=== PATIENT | male | born 1965 | race Caucasian/White ===

== ENCOUNTER 2018-12-28 19:27 | Inpatient (IN) | payer MEDICAID ==
[~2018-12-28] VITALS: Ht 177.8 cm; Wt 121.0 kg
--- NOTE | 2018-12-28 19:27 | NUR ---
BIB via ambulance from [facility] ED. C/O left upper dental abscess. Here for I&D. C/O pain and swelling at site. Will continue to monitor.
[2018-12-28] MEDS ORDERED: MORPHINE SULFATE 4 MG/ML, 1ML ONE (19:54)
[2018-12-28] MEDS ORDERED: MORPHINE SULFATE 4 MG/ML, 1ML IVPush PRN (20:00)
[2018-12-28] MEDS ORDERED: PLEASE ENTER ALLERGIES MC SCH (20:00)
--- NOTE | 2018-12-28 20:00 | NUR ---
C/O pain/ Morphine admin. Placed on 2 L NC.
[2018-12-28 20:14] LABS: MEAN CORPUSCULAR HEMOGLOBIN 32.8 pg (27.5-34.5); MEAN CORPUSCULAR HGB CONC 33.4 g/dL (33.2-36.2); MEAN PLATELET VOLUME 8.4 fL (7.4-10.4); PLATELET COUNT 272 x10^3/uL (130-400); RED BLOOD COUNT 4.54 x10^6/uL (4.38-5.82); RED CELL DISTRIBUTION WIDTH 14.2 % (9.4-14.8)
[2018-12-28 20:24] LABS: ALBUMIN 3.7 g/dL (3.4-5.0); ANION GAP 6 mmol/L (5-15); CALCIUM 9.1 mg/dL (8.5-10.1); CHLORIDE 106 mmol/L (98-107)
[2018-12-28 20:27] LABS: ALANINE AMINOTRANSFERASE 29 U/L (12-78); ALKALINE PHOSPHATASE 83 U/L (45-117); BILIRUBIN,TOTAL 0.4 mg/dL (0.2-1.0); CREATININE 1.27 mg/dL (0.7-1.3); MD YES; TOTAL PROTEIN 7.5 g/dL (6.4-8.2)
[2018-12-28 20:30] LABS: <PLATELET ESTIMATE> ADEQUATE; <PLT MORPHOLOGY> NORMAL PLT MORPH; <RBC MORPHOLOGY> NORMAL; EOS#(MANUAL) 0.33 x10^3/uL (0.0-0.4); EOS% (MANUAL) 3 % (1-7); LYMPH#(MANUAL) 2.75 x10^3/uL (1-3.4); LYMPHS% (MANUAL) 25 % (22-44); METAMYELOCYTES# (MANUAL) 0.22 x10^3/uL (0-0); METAMYELOCYTES% (MANUAL) 2 % (0-1); MONOS% (MANUAL) 10 % (2-9); SEGS% (MANUAL) 60 % (42-75)
[2018-12-28] MEDS ORDERED: INSU100I34 SQ (20:46)
[2018-12-28] MEDS ORDERED: FENO160T PO (20:46)
[2018-12-28] MEDS ORDERED: MELO15TA24 PO (20:46)
[2018-12-28] MEDS ORDERED: ATOR40TA78 PO (20:46)
[2018-12-28] MEDS ORDERED: BUPR200T2 PO (20:46)
[2018-12-28] MEDS ORDERED: TRAZ-137 PO (20:46)
[2018-12-28] MEDS ORDERED: METF500T17 PO (20:46)
[2018-12-28] MEDS ORDERED: GLIP10TA13 PO (20:46)
[2018-12-28] MEDS ORDERED: METO-99 PO (20:46)
[2018-12-28] MEDS ORDERED: CLON0.1T22 PO (20:46)
[2018-12-28] MEDS ORDERED: LIDOCAINE 1%-EPI 1:100K, 20ML ONE (21:21)
--- NOTE | 2018-12-28 21:38 | NUR ---
Report SHERRIE Duarte.
[2018-12-28] MEDS ORDERED: LISI-420 PO (22:11)
[2018-12-28 22:15] VITALS: BP 123/87
[2018-12-28] MEDS ORDERED: METO100T7 PO (22:16)
[2018-12-28] MEDS ORDERED: hydrALAzine 20 MG/ML, 1ML IVPush PRN (23:30)
[2018-12-28] MEDS ORDERED: ONDANSETRON ODT 4 MG PO PRN (23:30)
[2018-12-28] MEDS ORDERED: BISACODYL 10 MG SUPP PR PRN (23:30)
[2018-12-28] MEDS ORDERED: ONDANSETRON 2MG/ML, 2ML IVPush PRN (23:30)
[2018-12-28] MEDS ORDERED: PROMETHAZINE 25 MG/ML, 1ML IM PRN (23:30)
[2018-12-28] MEDS ORDERED: KETOROLAC 30 MG/1 ML IV PRN (23:30)
[2018-12-28 23:45] LABS: FREE T4 (FREE THYROXINE) 1.11 ng/dL (0.76-1.46); THYROID STIMULATING HORMONE 1.64 mIU/L (0.358-3.740)
[2018-12-28] MEDS: SODIUM CHLORIDE 0.9% 1,000 ML IV SCH (23:54)
[2018-12-28] MEDS: TRAZODONE 100MG TABLET PO SCH (23:55)
[2018-12-28] MEDS: METOPROLOL TARTRATE 100 MG TABLET PO SCH (23:56)
[2018-12-28] MEDS: FENOFIBRATE 145 MG TABLET PO SCH (23:56)
[2018-12-28] MEDS: OXYcodone IR 5MG TABLET PO PRN (23:57)
[2018-12-28] MEDS: INSULIN LISPRO 100 UNITS/ML, PEN SQ-INSULIN SCH (23:58)
[2018-12-29] MEDS: AMPICILLIN/SULBACTAM 3 GM in SODIUM CHLORIDE 0.9% 100 ML IV SCH ×4 (00:19→18:10)
[2018-12-29 03:59] VITALS: BP 102/73
[2018-12-29 05:17] LABS: BASOPHILS # (AUTO) 0.05 x10^3/uL (0-0.1); BASOPHILS % (AUTO) 1 % (0-1); EOSINOPHILS # (AUTO) 0.34 x10^3/uL (0-0.4); EOSINOPHILS % (AUTO) 4 % (1-7); LYMPHOCYTES # (AUTO) 2.48 x10^3/uL (1-3.4); LYMPHOCYTES % (AUTO) 26 % (22-44); MD NO; MEAN CORPUSCULAR HEMOGLOBIN 33.2 pg (27.5-34.5); MEAN CORPUSCULAR HGB CONC 33.8 g/dL (33.2-36.2); MEAN CORPUSCULAR VOLUME 98.1 fL (81-97); MEAN PLATELET VOLUME 8.5 fL (7.4-10.4); MONOCYTES # (AUTO) 1.36 x10^3/uL (0.2-0.8); MONOCYTES % (AUTO) 14 % (2-9); NEUTROPHILS # (AUTO) 5.32 x10^3/uL (1.8-6.8); NEUTROPHILS % (AUTO) 56 % (42-75); PLATELET COUNT 284 x10^3/uL (130-400); RED BLOOD COUNT 4.17 x10^6/uL (4.38-5.82); RED CELL DISTRIBUTION WIDTH 14.3 % (9.4-14.8)
[2018-12-29 05:29] LABS: CHLORIDE 105 mmol/L (98-107)
[2018-12-29 05:36] LABS: ALANINE AMINOTRANSFERASE 28 U/L (12-78); ALBUMIN 3.4 g/dL (3.4-5.0); ALKALINE PHOSPHATASE 70 U/L (45-117); ANION GAP 4 mmol/L (5-15); BILIRUBIN,TOTAL 0.3 mg/dL (0.2-1.0); CALCIUM 8.6 mg/dL (8.5-10.1); CHOL/HDL RATIO 3.4; CHOLESTEROL, TOTAL 134 mg/dL (140-239); CREATININE 1.94 mg/dL (0.7-1.3); HDL CHOL % 29 % (26-37); HDL CHOLESTEROL (DIRECT) 39 mg/dL (40-60); LDL CHOLESTEROL,CALCULATED 59 mg/dL (54-169); LDL/HDL RATIO 1.5 (0.5-3.0); TOTAL PROTEIN 6.8 g/dL (6.4-8.2); TRIGLYCERIDES 179 mg/dL (50-200); VLDL CHOLESTEROL 36 mg/dL (0-25)
[2018-12-29] MEDS: SODIUM CHLORIDE 0.9% 1,000 ML IV SCH ×2 (06:22→16:51)
[2018-12-29 07:57] VITALS: BP 105/67
[2018-12-29] MEDS: INSULIN LISPRO 100 UNITS/ML, PEN SQ-INSULIN SCH ×4 (08:01→22:21)
[2018-12-29] MEDS: METOPROLOL TARTRATE 100 MG TABLET PO SCH ×2 (08:01→22:06)
[2018-12-29] MEDS: BUPROPION SR 100 MG TABLET PO SCH (08:02)
[2018-12-29] MEDS ORDERED: LISINOPRIL 20 MG TABLET PO SCH (09:00)
[2018-12-29] MEDS ORDERED: SODIUM POLYSTYRENE SULFONATE ORAL SUSP PO ONE (10:30)
[2018-12-29 13:43] VITALS: BP 100/62
[2018-12-29] MEDS ORDERED: ONDANSETRON 2MG/ML, 2ML ONE (19:58)
[2018-12-29] MEDS ORDERED: SUCCINYLCHOLINE 20 MG/ML, 10ML ONE (19:58)
[2018-12-29] MEDS ORDERED: PROPOFOL 10 MG/ML, 20ML ONE (19:58)
[2018-12-29] MEDS ORDERED: MIDAZOLAM 1 MG/ML, 2ML ONE (19:59)
[2018-12-29] MEDS ORDERED: FENTANYL PF 100 MCG/2ML ONE ×2 (19:59→20:40)
[2018-12-29] MEDS ORDERED: LIDOCAINE 1%-EPI 1:100K, 20ML INFIL ONE (20:11)
[2018-12-29] MEDS: FENTANYL PF 100 MCG/2ML IV PRN ×2 (20:40→21:03)
[2018-12-29] MEDS ORDERED: OXYcodone 5 MG/5 ML ORAL.SOL UDC ONE (20:40)
[2018-12-29] MEDS ORDERED: ACETAMINOPHEN 325 MG TABLET PO PRN (21:00)
[2018-12-29] MEDS ORDERED: KETOROLAC 30 MG/1 ML IV PRN (21:00)
[2018-12-29] MEDS ORDERED: HYDROmorphone 2 MG/ML, 1ML IVPush PRN (21:00)
[2018-12-29] MEDS ORDERED: LABETALOL 5MG/ML, 20ML IV PRN (21:00)
[2018-12-29] MEDS ORDERED: hydrALAzine 20 MG/ML, 1ML IV PRN (21:00)
[2018-12-29] MEDS ORDERED: OXYcodone 5 MG/5 ML ORAL.SOL UDC PO PRN (21:00)
[2018-12-29] MEDS ORDERED: MEPERIDINE/PF 25MG/0.5ML IVPush PRN (21:00)
[2018-12-29] MEDS ORDERED: DIAZEPAM 5 MG/ML, 2ML IVPush PRN (21:00)
[2018-12-29] MEDS ORDERED: PROMETHAZINE 25 MG/ML, 1ML IV PRN (21:00)
[2018-12-29] MEDS ORDERED: ALBUTEROL SULFATE 2.5 MG/3 ML NPPB PRN (21:00)
[2018-12-29] MEDS ORDERED: hydrALAzine 20 MG/ML, 1ML ONE (21:21)
[2018-12-29] MEDS: ATORVASTATIN 20 MG TABLET PO SCH (22:06)
[2018-12-29] MEDS: TRAZODONE 100MG TABLET PO SCH (22:06)
[2018-12-29] MEDS: FENOFIBRATE 145 MG TABLET PO SCH (22:07)
[2018-12-29] MEDS: morphine SULFATE 10 MG/ML, 1ML IVPush PRN ×2 (22:07→22:38)
[2018-12-30] MEDS: OXYcodone IR 5MG TABLET PO PRN ×4 (02:21→20:39)
[2018-12-30 05:02] LABS: BASOPHILS # (AUTO) 0.02 x10^3/uL (0-0.1); BASOPHILS % (AUTO) 0 % (0-1); EOSINOPHILS # (AUTO) 0.09 x10^3/uL (0-0.4); EOSINOPHILS % (AUTO) 1 % (1-7); LYMPHOCYTES # (AUTO) 1.58 x10^3/uL (1-3.4); LYMPHOCYTES % (AUTO) 14 % (22-44); MD NO; MEAN CORPUSCULAR HEMOGLOBIN 32.6 pg (27.5-34.5); MEAN CORPUSCULAR HGB CONC 33.1 g/dL (33.2-36.2); MEAN CORPUSCULAR VOLUME 98.4 fL (81-97); MEAN PLATELET VOLUME 8.2 fL (7.4-10.4); MONOCYTES # (AUTO) 1.14 x10^3/uL (0.2-0.8); MONOCYTES % (AUTO) 10 % (2-9); NEUTROPHILS # (AUTO) 8.64 x10^3/uL (1.8-6.8); NEUTROPHILS % (AUTO) 75 % (42-75); PLATELET COUNT 324 x10^3/uL (130-400); RED BLOOD COUNT 4.05 x10^6/uL (4.38-5.82); RED CELL DISTRIBUTION WIDTH 13.9 % (9.4-14.8)
[2018-12-30 05:11] LABS: ANION GAP 4 mmol/L (5-15); CALCIUM 7.8 mg/dL (8.5-10.1); CHLORIDE 103 mmol/L (98-107); CREATININE 2.84 mg/dL (0.7-1.3)
[2018-12-30] MEDS: AMPICILLIN/SULBACTAM 3 GM in SODIUM CHLORIDE 0.9% 100 ML IV SCH ×4 (06:15→18:11)
[2018-12-30] MEDS: INSULIN LISPRO 100 UNITS/ML, PEN SQ-INSULIN SCH ×4 (07:36→20:45)
[2018-12-30] MEDS: SODIUM CHLORIDE 0.9% 1,000 ML IV SCH ×2 (07:36→13:00)
[2018-12-30] MEDS ORDERED: INSULIN REGULAR 100 UNITS/ML, 3ML VIAL IVPush ONE (08:00)
[2018-12-30] MEDS ORDERED: CALCIUM GLUCONATE 4.6 MEQ in SODIUM CHLORIDE 0.9% 50 ML IV ONE (08:00)
[2018-12-30] MEDS ORDERED: SODIUM POLYSTYRENE SULFONATE ORAL SUSP PO ONE (08:00)
[2018-12-30] MEDS ORDERED: DEXTROSE 50%, 50ML SYRINGE IVPush ONE (08:00)
[2018-12-30] MEDS ORDERED: PHARMACY MAY ADJ FOR RENAL FX MC PRN (08:00)
[2018-12-30 08:43] VITALS: BP 124/74
[2018-12-30] MEDS: BUPROPION SR 100 MG TABLET PO SCH (09:02)
[2018-12-30] MEDS: METOPROLOL TARTRATE 100 MG TABLET PO SCH ×2 (09:02→20:38)
[2018-12-30] MEDS: CHLORHEXIDINE 15 ML UDC MM SCH ×2 (09:02→20:37)
[2018-12-30 12:10] LABS: MICROSCOPIC NOT IND
[2018-12-30 12:15] LABS: CULTURE INDICATED? NO
[2018-12-30 12:26] LABS: ANION GAP 7 mmol/L (5-15); CALCIUM 8.1 mg/dL (8.5-10.1); CHLORIDE 101 mmol/L (98-107)
[2018-12-30 12:27] LABS: CREATININE 2.57 mg/dL (0.7-1.3)
[2018-12-30 13:36] LABS: ABSOLUTE RETICS # 0.06 x10^6/uL (0.5-1.5); RED BLOOD COUNT 3.87 x10^6/uL (4.38-5.82); RETICULOCYTE COUNT % 1.54 % (0.5-1.5)
[2018-12-30 13:40] VITALS: BP 143/62
[2018-12-30 13:43] LABS: CALCIUM 8.2 mg/dL (8.5-10.1)
[2018-12-30 17:28] LABS: ANION GAP 5 mmol/L (5-15); CALCIUM 7.7 mg/dL (8.5-10.1); CHLORIDE 103 mmol/L (98-107); CREATININE 2.48 mg/dL (0.7-1.3)
[2018-12-30 20:00] VITALS: BP 138/74
[2018-12-30] MEDS: FENOFIBRATE 145 MG TABLET PO SCH (20:38)
[2018-12-30] MEDS: DOCUSATE 100 MG CAPSULE PO PRN (20:38)
[2018-12-30] MEDS: TRAZODONE 100MG TABLET PO SCH (20:38)
[2018-12-30] MEDS: FUROSEMIDE 20 MG/2 ML IV SCH (20:39)
[2018-12-30] MEDS: ATORVASTATIN 20 MG TABLET PO SCH (20:39)
[2018-12-30 21:59] LABS: CHLORIDE,URINE RANDOM 38 mmol/L; POTASSIUM,URINE RANDOM 23 mmol/L; SODIUM,URINE RANDOM 44 mmol/L
[2018-12-30 22:04] LABS: MICROSCOPIC NOT IND
[2018-12-30 22:37] LABS: OSMOLALITY,URINE 435 mOsm/kg (500-850)
[2018-12-31] MEDS: AMPICILLIN/SULBACTAM 3 GM in SODIUM CHLORIDE 0.9% 100 ML IV SCH ×2 (00:53→06:18)
[2018-12-31 02:00] VITALS: BP 128/82
[2018-12-31 05:09] LABS: INTERNATIONAL NORMALIZED RATIO 0.99 (0.93-1.1); PROTHROMBIN TIME 10.4 Seconds (9.6-11.5)
[2018-12-31 05:10] LABS: ANION GAP 4 mmol/L (5-15); CALCIUM 8.1 mg/dL (8.5-10.1); CHLORIDE 99 mmol/L (98-107); CREATININE 2.57 mg/dL (0.7-1.3)
[2018-12-31 05:12] LABS: BASOPHILS # (AUTO) 0.07 x10^3/uL (0-0.1); BASOPHILS % (AUTO) 1 % (0-1); EOSINOPHILS # (AUTO) 0.38 x10^3/uL (0-0.4); EOSINOPHILS % (AUTO) 5 % (1-7); LYMPHOCYTES # (AUTO) 1.52 x10^3/uL (1-3.4); LYMPHOCYTES % (AUTO) 18 % (22-44); MD NO; MEAN CORPUSCULAR HEMOGLOBIN 33.4 pg (27.5-34.5); MEAN CORPUSCULAR HGB CONC 34.4 g/dL (33.2-36.2); MEAN CORPUSCULAR VOLUME 97.2 fL (81-97); MEAN PLATELET VOLUME 8.3 fL (7.4-10.4); MONOCYTES # (AUTO) 1.35 x10^3/uL (0.2-0.8); MONOCYTES % (AUTO) 16 % (2-9); NEUTROPHILS # (AUTO) 5.27 x10^3/uL (1.8-6.8); NEUTROPHILS % (AUTO) 61 % (42-75); PLATELET COUNT 238 x10^3/uL (130-400); RED BLOOD COUNT 3.75 x10^6/uL (4.38-5.82); RED CELL DISTRIBUTION WIDTH 13.8 % (9.4-14.8)
[2018-12-31] MEDS: DOCUSATE 100 MG CAPSULE PO PRN (06:51)
[2018-12-31] MEDS: OXYcodone IR 5MG TABLET PO PRN ×2 (06:51→17:02)
[2018-12-31] MEDS: INSULIN LISPRO 100 UNITS/ML, PEN SQ-INSULIN SCH ×4 (07:00→20:52)
[2018-12-31 08:20] VITALS: BP 123/78
[2018-12-31] MEDS: FUROSEMIDE 20 MG/2 ML IV SCH (08:31)
[2018-12-31] MEDS: CHLORHEXIDINE 15 ML UDC MM SCH ×2 (08:31→20:47)
[2018-12-31] MEDS: POLYETHYLENE GLYCOL 17 GM PACKET PO PRN (08:32)
[2018-12-31] MEDS: BUPROPION SR 100 MG TABLET PO SCH (08:32)
[2018-12-31] MEDS: METOPROLOL TARTRATE 100 MG TABLET PO SCH ×2 (08:32→20:52)
[2018-12-31] MEDS: AMPICILLIN/SULBACTAM 3 GM in SODIUM CHLORIDE 0.9% 50 ML IV SCH ×2 (11:44→17:53)
[2018-12-31] MEDS: SODIUM CHLORIDE 0.9% 1,000 ML IV SCH (11:45)
[2018-12-31] MEDS: IRON SUCROSE COMPLEX 100MG/5ML IV SCH (12:11)
[2018-12-31] MEDS: ERGOCALCIFEROL 50,000 UNIT CAPSULE PO SCH (12:11)
[2018-12-31] MEDS: CALCIUM CARBONATE 500 MG TABLET PO SCH ×2 (12:33→20:51)
[2018-12-31 12:55] VITALS: BP 120/75
[2018-12-31 13:03] LABS: MICROSCOPIC NOT IND
[2018-12-31 13:16] LABS: CREATININE,URINE RANDOM 20.8 mg/dL
[2018-12-31 19:06] VITALS: BP 122/75
[2018-12-31 20:49] VITALS: BP 135/80
[2018-12-31] MEDS: TRAZODONE 100MG TABLET PO SCH (20:50)
[2018-12-31] MEDS: FENOFIBRATE 145 MG TABLET PO SCH (20:51)
[2018-12-31] MEDS: ATORVASTATIN 20 MG TABLET PO SCH (20:52)
[2019-01-01] MEDS: AMPICILLIN/SULBACTAM 3 GM in SODIUM CHLORIDE 0.9% 50 ML IV SCH ×5 (00:08→23:49)
[2019-01-01 02:03] VITALS: BP 118/72
[2019-01-01] MEDS: OXYcodone IR 5MG TABLET PO PRN ×2 (05:21→10:57)
[2019-01-01 05:52] LABS: BASOPHILS # (AUTO) 0.02 x10^3/uL (0-0.1); BASOPHILS % (AUTO) 0 % (0-1); EOSINOPHILS % (AUTO) 5 % (1-7); LYMPHOCYTES # (AUTO) 1.45 x10^3/uL (1-3.4); LYMPHOCYTES % (AUTO) 19 % (22-44); MD NO; MEAN CORPUSCULAR HEMOGLOBIN 33.5 pg (27.5-34.5); MEAN CORPUSCULAR HGB CONC 34.4 g/dL (33.2-36.2); MEAN CORPUSCULAR VOLUME 97.4 fL (81-97); MEAN PLATELET VOLUME 8.3 fL (7.4-10.4); MONOCYTES # (AUTO) 1.15 x10^3/uL (0.2-0.8); MONOCYTES % (AUTO) 15 % (2-9); NEUTROPHILS # (AUTO) 4.54 x10^3/uL (1.8-6.8); NEUTROPHILS % (AUTO) 60 % (42-75); PLATELET COUNT 280 x10^3/uL (130-400); RED BLOOD COUNT 3.96 x10^6/uL (4.38-5.82); RED CELL DISTRIBUTION WIDTH 13.6 % (9.4-14.8)
[2019-01-01 06:09] LABS: CHLORIDE 101 mmol/L (98-107)
[2019-01-01 06:20] LABS: ALANINE AMINOTRANSFERASE 32 U/L (12-78); ALBUMIN 3.1 g/dL (3.4-5.0); ALKALINE PHOSPHATASE 70 U/L (45-117); ANION GAP 6 mmol/L (5-15); BILIRUBIN,TOTAL 0.3 mg/dL (0.2-1.0); CALCIUM 9.8 mg/dL (8.5-10.1); CREATININE 2.03 mg/dL (0.7-1.3); TOTAL PROTEIN 6.7 g/dL (6.4-8.2)
[2019-01-01 07:45] VITALS: BP 135/95
[2019-01-01] MEDS: CHLORHEXIDINE 15 ML UDC MM SCH ×2 (08:11→20:27)
[2019-01-01] MEDS: METOPROLOL TARTRATE 100 MG TABLET PO SCH ×2 (08:12→20:26)
[2019-01-01] MEDS: CALCIUM CARBONATE 500 MG TABLET PO SCH ×2 (08:12→20:31)
[2019-01-01] MEDS: INSULIN LISPRO 100 UNITS/ML, PEN SQ-INSULIN SCH ×4 (08:12→20:28)
[2019-01-01] MEDS: BUPROPION SR 100 MG TABLET PO SCH (08:12)
[2019-01-01] MEDS: SODIUM CHLORIDE 0.9% 1,000 ML IV SCH (08:12)
[2019-01-01] MEDS: POLYETHYLENE GLYCOL 17 GM PACKET PO PRN (10:57)
[2019-01-01] MEDS: IRON SUCROSE COMPLEX 100MG/5ML IV SCH (10:57)
[2019-01-01 16:20] VITALS: BP 141/94
[2019-01-01 17:49] LABS: HCT (SEDRATE) 38.4 % (39.2-51.8)
[2019-01-01 19:03] VITALS: BP 123/80
[2019-01-01 20:25] VITALS: BP 120/76
[2019-01-01] MEDS: ATORVASTATIN 20 MG TABLET PO SCH (20:26)
[2019-01-01] MEDS: FENOFIBRATE 145 MG TABLET PO SCH (20:26)
[2019-01-01] MEDS: TRAZODONE 100MG TABLET PO SCH (20:27)
[2019-01-02 00:45] VITALS: BP 138/89
[2019-01-02 05:04] LABS: ALBUMIN 3.2 g/dL (3.4-5.0); ANION GAP 5 mmol/L (5-15); BASOPHILS # (AUTO) 0.05 x10^3/uL (0-0.1); BASOPHILS % (AUTO) 1 % (0-1); CALCIUM 10.4 mg/dL (8.5-10.1); CHLORIDE 101 mmol/L (98-107); CREATININE 1.78 mg/dL (0.7-1.3); EOSINOPHILS # (AUTO) 0.34 x10^3/uL (0-0.4); EOSINOPHILS % (AUTO) 5 % (1-7); LYMPHOCYTES # (AUTO) 1.72 x10^3/uL (1-3.4); LYMPHOCYTES % (AUTO) 25 % (22-44); MD NO; MEAN CORPUSCULAR HEMOGLOBIN 33.2 pg (27.5-34.5); MEAN CORPUSCULAR HGB CONC 34.2 g/dL (33.2-36.2); MEAN CORPUSCULAR VOLUME 96.9 fL (81-97); MEAN PLATELET VOLUME 8.4 fL (7.4-10.4); MONOCYTES # (AUTO) 0.99 x10^3/uL (0.2-0.8); MONOCYTES % (AUTO) 14 % (2-9); NEUTROPHILS % (AUTO) 56 % (42-75); PLATELET COUNT 288 x10^3/uL (130-400); RED BLOOD COUNT 3.91 x10^6/uL (4.38-5.82); RED CELL DISTRIBUTION WIDTH 13.9 % (9.4-14.8)
[2019-01-02] MEDS: AMPICILLIN/SULBACTAM 3 GM in SODIUM CHLORIDE 0.9% 50 ML IV SCH ×4 (05:37→23:33)
[2019-01-02 06:00] VITALS: BP 147/94
[2019-01-02] MEDS: BUPROPION SR 100 MG TABLET PO SCH (09:11)
[2019-01-02] MEDS: METOPROLOL TARTRATE 100 MG TABLET PO SCH ×2 (09:11→21:35)
[2019-01-02] MEDS: CALCIUM CARBONATE 500 MG TABLET PO SCH (09:15)
[2019-01-02] MEDS: CHLORHEXIDINE 15 ML UDC MM SCH ×2 (09:21→21:34)
[2019-01-02] MEDS: INSULIN LISPRO 100 UNITS/ML, PEN SQ-INSULIN SCH ×4 (09:22→21:36)
[2019-01-02] MEDS: IRON SUCROSE COMPLEX 100MG/5ML IV SCH (13:10)
[2019-01-02 18:54] VITALS: BP 134/82
[2019-01-02 21:32] VITALS: BP 144/95
[2019-01-02] MEDS: TRAZODONE 100MG TABLET PO SCH (21:35)
[2019-01-02] MEDS: FENOFIBRATE 145 MG TABLET PO SCH (21:35)
[2019-01-02] MEDS: ATORVASTATIN 20 MG TABLET PO SCH (21:35)
[2019-01-03 01:35] VITALS: BP 150/96
[2019-01-03 05:58] LABS: ALBUMIN 3.3 g/dL (3.4-5.0); ANION GAP 5 mmol/L (5-15); CALCIUM 9.7 mg/dL (8.5-10.1); CHLORIDE 104 mmol/L (98-107)
[2019-01-03 06:02] LABS: ALANINE AMINOTRANSFERASE 23 U/L (12-78); ALKALINE PHOSPHATASE 59 U/L (45-117); BILIRUBIN,TOTAL 0.6 mg/dL (0.2-1.0); C-REACTIVE PROTEIN, QUANT 0.61 mg/dL (0.02-0.49); CREATININE 1.74 mg/dL (0.7-1.3); TOTAL PROTEIN 6.7 g/dL (6.4-8.2)
[2019-01-03] MEDS: AMPICILLIN/SULBACTAM 3 GM in SODIUM CHLORIDE 0.9% 50 ML IV SCH ×3 (06:22→17:20)
[2019-01-03 07:17] VITALS: BP 132/81
[2019-01-03] MEDS: CALCIUM CARBONATE 500 MG TABLET PO SCH (08:36)
[2019-01-03] MEDS: CHLORHEXIDINE 15 ML UDC MM SCH ×2 (08:36→20:24)
[2019-01-03] MEDS: BUPROPION SR 100 MG TABLET PO SCH (08:37)
[2019-01-03] MEDS: METOPROLOL TARTRATE 100 MG TABLET PO SCH ×2 (08:37→20:25)
[2019-01-03] MEDS: INSULIN LISPRO 100 UNITS/ML, PEN SQ-INSULIN SCH ×4 (08:37→20:25)
[2019-01-03] MEDS: IRON SUCROSE COMPLEX 100MG/5ML IV SCH (12:19)
[2019-01-03 14:15] VITALS: BP 112/84
[2019-01-03 19:47] VITALS: BP 148/95
[2019-01-03] MEDS: ATORVASTATIN 20 MG TABLET PO SCH (20:24)
[2019-01-03] MEDS: TRAZODONE 100MG TABLET PO SCH (20:24)
[2019-01-03] MEDS: FENOFIBRATE 145 MG TABLET PO SCH (20:24)
[2019-01-04] MEDS: AMPICILLIN/SULBACTAM 3 GM in SODIUM CHLORIDE 0.9% 50 ML IV SCH ×5 (00:03→20:50)
[2019-01-04 01:18] VITALS: BP 103/63
[2019-01-04 05:15] LABS: HCT (SEDRATE) 41.1 % (39.2-51.8)
[2019-01-04 05:22] LABS: BASOPHILS # (AUTO) 0.06 x10^3/uL (0-0.1); BASOPHILS % (AUTO) 1 % (0-1); EOSINOPHILS # (AUTO) 0.37 x10^3/uL (0-0.4); EOSINOPHILS % (AUTO) 4 % (1-7); LYMPHOCYTES # (AUTO) 1.77 x10^3/uL (1-3.4); LYMPHOCYTES % (AUTO) 20 % (22-44); MD NO; MEAN CORPUSCULAR HEMOGLOBIN 33.1 pg (27.5-34.5); MEAN CORPUSCULAR HGB CONC 34.1 g/dL (33.2-36.2); MEAN CORPUSCULAR VOLUME 97.1 fL (81-97); MEAN PLATELET VOLUME 8.1 fL (7.4-10.4); MONOCYTES # (AUTO) 1.12 x10^3/uL (0.2-0.8); MONOCYTES % (AUTO) 13 % (2-9); NEUTROPHILS # (AUTO) 5.58 x10^3/uL (1.8-6.8); NEUTROPHILS % (AUTO) 63 % (42-75); PLATELET COUNT 324 x10^3/uL (130-400); RED BLOOD COUNT 4.21 x10^6/uL (4.38-5.82); RED CELL DISTRIBUTION WIDTH 13.9 % (9.4-14.8)
[2019-01-04 05:25] LABS: CHLORIDE 103 mmol/L (98-107)
[2019-01-04 05:35] LABS: ALANINE AMINOTRANSFERASE 18 U/L (12-78); ALBUMIN 3.3 g/dL (3.4-5.0); ALKALINE PHOSPHATASE 59 U/L (45-117); ANION GAP 6 mmol/L (5-15); BILIRUBIN,TOTAL 0.3 mg/dL (0.2-1.0); CALCIUM 9.7 mg/dL (8.5-10.1); CREATININE 1.76 mg/dL (0.7-1.3); TOTAL PROTEIN 6.9 g/dL (6.4-8.2)
[2019-01-04 07:28] VITALS: BP 144/96
[2019-01-04] MEDS: BUPROPION SR 100 MG TABLET PO SCH (08:33)
[2019-01-04] MEDS: CALCIUM CARBONATE 500 MG TABLET PO SCH (08:33)
[2019-01-04] MEDS: CHLORHEXIDINE 15 ML UDC MM SCH ×2 (08:33→20:50)
[2019-01-04] MEDS: METOPROLOL TARTRATE 100 MG TABLET PO SCH ×2 (08:33→20:51)
[2019-01-04] MEDS: INSULIN LISPRO 100 UNITS/ML, PEN SQ-INSULIN SCH ×4 (08:39→20:51)
[2019-01-04] MEDS: IRON SUCROSE COMPLEX 100MG/5ML IV SCH (12:39)
[2019-01-04 13:36] VITALS: BP 129/85
[2019-01-04] MEDS: OXYcodone IR 5MG TABLET PO PRN (16:03)
[2019-01-04 19:38] VITALS: BP 122/73
[2019-01-04] MEDS: FENOFIBRATE 145 MG TABLET PO SCH (20:51)
[2019-01-04] MEDS: ATORVASTATIN 20 MG TABLET PO SCH (20:51)
[2019-01-04] MEDS: TRAZODONE 100MG TABLET PO SCH (20:51)
[2019-01-05 02:46] VITALS: BP 120/79
[2019-01-05] MEDS: AMPICILLIN/SULBACTAM 3 GM in SODIUM CHLORIDE 0.9% 50 ML IV SCH ×2 (03:16→09:53)
[2019-01-05 03:27] LABS: BASOPHILS # (AUTO) 0.07 x10^3/uL (0-0.1); BASOPHILS % (AUTO) 1 % (0-1); EOSINOPHILS # (AUTO) 0.38 x10^3/uL (0-0.4); EOSINOPHILS % (AUTO) 4 % (1-7); LYMPHOCYTES % (AUTO) 18 % (22-44); MD NO; MEAN CORPUSCULAR HEMOGLOBIN 32.7 pg (27.5-34.5); MEAN CORPUSCULAR HGB CONC 33.4 g/dL (33.2-36.2); MEAN CORPUSCULAR VOLUME 97.7 fL (81-97); MEAN PLATELET VOLUME 8.2 fL (7.4-10.4); MONOCYTES # (AUTO) 1.27 x10^3/uL (0.2-0.8); MONOCYTES % (AUTO) 12 % (2-9); NEUTROPHILS # (AUTO) 7.09 x10^3/uL (1.8-6.8); NEUTROPHILS % (AUTO) 66 % (42-75); PLATELET COUNT 320 x10^3/uL (130-400); RED BLOOD COUNT 4.12 x10^6/uL (4.38-5.82); RED CELL DISTRIBUTION WIDTH 14.3 % (9.4-14.8)
[2019-01-05 03:37] LABS: ALBUMIN 3.4 g/dL (3.4-5.0); ANION GAP 7 mmol/L (5-15); CALCIUM 9.4 mg/dL (8.5-10.1); CHLORIDE 105 mmol/L (98-107)
[2019-01-05 03:41] LABS: ALANINE AMINOTRANSFERASE 19 U/L (12-78); ALKALINE PHOSPHATASE 58 U/L (45-117); BILIRUBIN,TOTAL 0.6 mg/dL (0.2-1.0); CREATININE 1.66 mg/dL (0.7-1.3); TOTAL PROTEIN 6.7 g/dL (6.4-8.2)
[2019-01-05 06:56] VITALS: BP 128/87
[2019-01-05] MEDS: INSULIN LISPRO 100 UNITS/ML, PEN SQ-INSULIN SCH ×4 (07:00→21:22)
[2019-01-05] MEDS: BUPROPION SR 100 MG TABLET PO SCH (09:53)
[2019-01-05] MEDS: METOPROLOL TARTRATE 100 MG TABLET PO SCH ×2 (09:53→21:22)
[2019-01-05] MEDS: CHLORHEXIDINE 15 ML UDC MM SCH ×2 (09:53→21:21)
[2019-01-05] MEDS: CALCIUM CARBONATE 500 MG TABLET PO SCH (09:54)
[2019-01-05] MEDS: ERTAPENEM 1 GM in SODIUM CHLORIDE 0.9% 50 ML IV SCH (13:28)
[2019-01-05 13:43] VITALS: BP 105/71
[2019-01-05 20:30] VITALS: BP 114/70
[2019-01-05] MEDS: FENOFIBRATE 145 MG TABLET PO SCH (21:21)
[2019-01-05] MEDS: TRAZODONE 100MG TABLET PO SCH (21:22)
[2019-01-05] MEDS: ATORVASTATIN 20 MG TABLET PO SCH (21:22)
[2019-01-06 01:32] VITALS: BP 128/81
[2019-01-06 04:26] LABS: BASOPHILS # (AUTO) 0.04 x10^3/uL (0-0.1); BASOPHILS % (AUTO) 0 % (0-1); EOSINOPHILS # (AUTO) 0.33 x10^3/uL (0-0.4); EOSINOPHILS % (AUTO) 3 % (1-7); LYMPHOCYTES # (AUTO) 2.07 x10^3/uL (1-3.4); LYMPHOCYTES % (AUTO) 19 % (22-44); MD NO; MEAN CORPUSCULAR HEMOGLOBIN 32.7 pg (27.5-34.5); MEAN CORPUSCULAR HGB CONC 33.7 g/dL (33.2-36.2); MEAN CORPUSCULAR VOLUME 97.1 fL (81-97); MEAN PLATELET VOLUME 8.7 fL (7.4-10.4); MONOCYTES # (AUTO) 1.29 x10^3/uL (0.2-0.8); MONOCYTES % (AUTO) 12 % (2-9); NEUTROPHILS # (AUTO) 7.23 x10^3/uL (1.8-6.8); NEUTROPHILS % (AUTO) 66 % (42-75); PLATELET COUNT 344 x10^3/uL (130-400); RED BLOOD COUNT 4.15 x10^6/uL (4.38-5.82); RED CELL DISTRIBUTION WIDTH 13.7 % (9.4-14.8)
[2019-01-06 04:41] LABS: ALANINE AMINOTRANSFERASE 20 U/L (12-78); ALBUMIN 3.5 g/dL (3.4-5.0); ANION GAP 5 mmol/L (5-15); CALCIUM 9.3 mg/dL (8.5-10.1); CHLORIDE 105 mmol/L (98-107); CREATININE 1.58 mg/dL (0.7-1.3)
[2019-01-06 04:43] LABS: ALKALINE PHOSPHATASE 61 U/L (45-117); BILIRUBIN,TOTAL 0.4 mg/dL (0.2-1.0)
[2019-01-06 06:45] VITALS: BP 136/87
[2019-01-06] MEDS: INSULIN LISPRO 100 UNITS/ML, PEN SQ-INSULIN SCH ×4 (07:00→21:07)
[2019-01-06] MEDS: BUPROPION SR 100 MG TABLET PO SCH (08:56)
[2019-01-06] MEDS: METOPROLOL TARTRATE 100 MG TABLET PO SCH ×2 (08:56→21:06)
[2019-01-06] MEDS: CALCIUM CARBONATE 500 MG TABLET PO SCH (08:56)
[2019-01-06] MEDS: CHLORHEXIDINE 15 ML UDC MM SCH ×2 (08:56→21:24)
[2019-01-06] MEDS: ERTAPENEM 1 GM in SODIUM CHLORIDE 0.9% 50 ML IV SCH (13:30)
[2019-01-06 13:52] VITALS: BP 106/70
[2019-01-06 19:46] VITALS: BP 128/73
[2019-01-06] MEDS: TRAZODONE 100MG TABLET PO SCH (20:53)
[2019-01-06] MEDS: ATORVASTATIN 20 MG TABLET PO SCH (21:05)
[2019-01-06] MEDS: FENOFIBRATE 145 MG TABLET PO SCH (21:06)
[2019-01-07 03:50] VITALS: BP 116/77
[2019-01-07] MEDS: INSULIN LISPRO 100 UNITS/ML, PEN SQ-INSULIN SCH ×4 (07:00→21:02)
[2019-01-07 08:40] VITALS: BP 132/89
[2019-01-07] MEDS: BUPROPION SR 100 MG TABLET PO SCH (09:45)
[2019-01-07] MEDS: CHLORHEXIDINE 15 ML UDC MM SCH ×2 (09:46→20:59)
[2019-01-07] MEDS: CALCIUM CARBONATE 500 MG TABLET PO SCH (09:46)
[2019-01-07] MEDS: METOPROLOL TARTRATE 100 MG TABLET PO SCH ×2 (09:49→21:00)
[2019-01-07] MEDS: ERGOCALCIFEROL 50,000 UNIT CAPSULE PO SCH (12:09)
[2019-01-07] MEDS: ERTAPENEM 1 GM in SODIUM CHLORIDE 0.9% 50 ML IV SCH (12:09)
[2019-01-07 13:45] VITALS: BP 111/75
[2019-01-07] MEDS: metroNIDAZOLE 500 MG TABLET PO SCH (17:31)
[2019-01-07] MEDS: CEFTRIAXONE PMX 2GM/50ML 50 ML IV SCH (17:31)
[2019-01-07 19:59] VITALS: BP 107/68
[2019-01-07 20:58] VITALS: BP 115/81
[2019-01-07] MEDS: ATORVASTATIN 20 MG TABLET PO SCH (21:00)
[2019-01-07] MEDS: FENOFIBRATE 145 MG TABLET PO SCH (21:00)
[2019-01-07] MEDS: TRAZODONE 100MG TABLET PO SCH (21:00)
[2019-01-08 01:57] VITALS: BP 125/80
[2019-01-08] MEDS: CALCIUM CARBONATE 500 MG TABLET PO SCH (09:04)
[2019-01-08] MEDS: metroNIDAZOLE 500 MG TABLET PO SCH ×2 (09:04→11:33)
[2019-01-08] MEDS: CHLORHEXIDINE 15 ML UDC MM SCH (09:04)
[2019-01-08] MEDS: BUPROPION SR 100 MG TABLET PO SCH (09:04)
[2019-01-08] MEDS: INSULIN LISPRO 100 UNITS/ML, PEN SQ-INSULIN SCH ×2 (09:05→11:34)
[2019-01-08] MEDS: METOPROLOL TARTRATE 100 MG TABLET PO SCH (09:05)
[2019-01-08 09:34] VITALS: BP 110/54
[2019-01-08] MEDS ORDERED: CHLO473M MM (10:55)
[2019-01-08] MEDS ORDERED: METR500T PO (10:55)
[2019-01-08] MEDS ORDERED: ONDA4TAB13 PO (10:55)
[2019-01-08] MEDS ORDERED: DOCU-131 PO (10:55)
[2019-01-08] MEDS ORDERED: CEFT2FRO2 IV (10:55)
[2019-01-08] MEDS: CEFTRIAXONE PMX 2GM/50ML 50 ML IV SCH (11:05)
== END 2019-01-08 12:20 | disposition home or self-care (01) | DRG 131 ==
LOC: ED 20:15 → EDIP 20:33 → 4NOR 21:50 → 4WST 12-30 11:01 → DCLOUNGE 01-08 12:06
PROVIDERS: ADMIT Internal Medicine; ATTEND Internal Medicine
PROC: 0C9W0Z1 Drainage of Upper Tooth, Open Approach, Multiple (ICD-10-PCS; 2018-12-29)
PROC: 0CDWXZ1 Extraction of Upper Tooth, Multiple, External Approach (ICD-10-PCS; 2018-12-29)
PROC: 0NQR0ZZ Repair Maxilla, Open Approach (ICD-10-PCS; principal; 2018-12-29 21:00)
PROC: 0T9B70Z Drainage of Bladder with Drainage Device, Via Natural or Artificial Opening (ICD-10-PCS; 2018-12-31)
PROC: 02HV33Z Insertion of Infusion Device into Superior Vena Cava, Percutaneous Approach (ICD-10-PCS; 2019-01-04)
PROC: B5181ZA Fluoroscopy of Superior Vena Cava using Low Osmolar Contrast, Guidance (ICD-10-PCS; 2019-01-04)
PROC: B548ZZA Ultrasonography of Superior Vena Cava, Guidance (ICD-10-PCS; 2019-01-04)
DX: K04.6 Periapical abscess with sinus (principal); N17.0 Acute kidney failure with tubular necrosis; L02.01 Cutaneous abscess of face; E11.22 Type 2 diabetes mellitus with diabetic chronic kidney disease; E11.65 Type 2 diabetes mellitus with hyperglycemia; N18.3 Chronic kidney disease, stage 3 (moderate); E66.01 Morbid (severe) obesity due to excess calories; K02.9 Dental caries, unspecified; R33.9 Retention of urine, unspecified; D64.9 Anemia, unspecified; D75.89 Other specified diseases of blood and blood-forming organs; E87.5 Hyperkalemia; I12.9 Hypertensive chronic kidney disease with stage 1 through stage 4 chronic kidney disease, or unspecified chronic kidney disease; E78.5 Hyperlipidemia, unspecified; E83.51 Hypocalcemia; E83.52 Hypercalcemia; G47.33 Obstructive sleep apnea (adult) (pediatric); F17.220 Nicotine dependence, chewing tobacco, uncomplicated; F32.9 Major depressive disorder, single episode, unspecified; Z82.49 Family history of ischemic heart disease and other diseases of the circulatory system; Z88.6 Allergy status to analgesic agent; Z87.01 Personal history of pneumonia (recurrent); Z86.73 Personal history of transient ischemic attack (TIA), and cerebral infarction without residual deficits; Z68.38 Body mass index [BMI] 38.0-38.9, adult
CPT/HCPCS: 36415; 36573; 70100; 70486; 76770; 80048; 80053; 80061; 80069; 81003; 82306; 82310; 82436; 82550; 82570; 82607; 82728; 82962; 83036; 83540; 83550; 83605; 83735; 83935; 83970; 84100; 84133; 84145; 84156; 84300; 84439; 84443; 84550; 85025; 85045; 85610; 85651; 85730; 86063; 86140; 86160; 86162; 86803; 87040; 87205; 93005; 96374; 99285; G0378; J0295; J0610; J0696; J1335; J1756; J1815; J1885; J2250; J2405; J2704; J3010; J3490; C1751; J0330; J0360; J1940; J2270; J7030